=== PATIENT | male | born 1990 | race Caucasian/White ===

== ENCOUNTER 2023-01-18 14:26 | Emergency (ER) | payer SELFPAY ==
[~2023-01-18] VITALS: Ht 172 cm; Wt 88.0 kg
[2023-01-18 14:41] VITALS: BP 115/70
--- NOTE | 2023-01-18 15:08 | ED Psychosocial ---
General Chief Complaint: Psych/Social Disorder Stated Complaint: PSYCH EVAL Nursing Triage Note: Patient has presented to ER with vague complainst of being depressed and having suicidal thoughts. Patient is very vague and he denies a plan. He denies trying to hurt himself. Source: patient History of Present Illness Date Seen by Provider: Jan 18, 2023 Time Seen by Provider: 14:33 Initial Comments 33-year-old male presenting with complaints of having increased depression and suicidal thoughts since Monday. He states that he does not have a specific plan of how to kill himself but had thought about shooting himself in the head with a gun or jumping off of a roof of a building. He denies having any previous p sychiatric admissions. He they recently had increased his Seroquel to 400 mg and he has been more fatigued with that as well as having low blood pressure sometimes when he stands up. He felt like it was helping but again since Monday he has had increased thoughts of suicide. He states that he was not sure what else to do and had spoken with somebody at [facility] and they brought him here to the emergency department for mental health evaluation. He denies any alcohol or drug use. He states he does have family support with family members living nearby. He lives alone with a pet cat. Timing/Duration: getting worse Severity: moderate Associated Symptoms: impaired concentration, suicidal ideation Allergies and Home Medications Allergies Coded Allergies: No Known Drug Allergies (Unverified , 01/18/23) Patient Home Medication List Home Medication List Reviewed: Yes Nitrofurantoin Monohyd/M-Cryst (Macrobid 100 mg Capsule) 100 Mg Capsule, 1 TAB PO BID Prescribed by: NIKKIE CABAN on 01/18/23 1643 Review of Systems Constitutional: No chills, No fever EENTM: no symptoms reported Respiratory: no symptoms reported Cardiovascular: no symptoms reported Gastrointestinal: no symptoms reported Genitourinary: no symptoms reported Musculoskeletal: no symptoms reported Skin: no symptoms reported Psychiatric/Neurological: See HPI Past Aodtqry-Ojcksc-Rkmwfi Hx Patient Social History Tobacco Use?: No Use of E-Cig and/or Vaping dev: No Alcohol Use?: No Past Medical History Surgery/Hospitalization HX: Depression Physical Exam Vital Signs - First Documented 01/18/23 14:41 Temp 36.4 Pulse 83 Resp 16 B/P (MAP) 115/70 (85) Pulse Ox 97 O2 Delivery Room Air Capillary Refill : Height, Weight, BMI Height: '" Weight: lbs. oz. kg; 29.00 BMI Method: General Appearance: WD/WN, no apparent distress HEENT: PERRL/EOMI, pharynx normal Neck: non-tender, full range of motion, supple, normal inspection Respiratory: chest non-tender, lungs clear, normal breath sounds, no respiratory distress, no accessory muscle use Cardiovascular: normal peripheral pulses, regular rate, rhythm Gastrointestinal: normal bowel sounds, non tender, soft, no pulsatile mass Extremities: normal range of motion, non-tender, normal capillary refill Neurologic/Psychiatric: rn hemodialysis II-XII nml as tested, no motor/sensory deficits, alert, oriented x 3, other (Flat and depressed affect) Appearance/Memory: appropriate appearance Behavior/Eye Contact: cooperative, good eye contact, decreased rate of speech Thoughts/Hallucinations: no apparent hallucination, auditory hallucinations Skin: normal color, warm/dry Progress/Results/Core Measures Results/Orders Lab Results Laboratory Tests Test 01/18/23 15:06 01/18/23 15:30 Range/Units White Blood Count 4.5 4.3-11.0 10^3/uL Red Blood Count 4.47 4.30-5.52 10^6/uL Hemoglobin 13.6 13.3-17.7 g/dL Hematocrit 40 40-54 % Mean Corpuscular Volume 89 80-99 fL Mean Corpuscular Hemoglobin 30 25-34 pg Mean Corpuscular Hemoglobin Concent 34 32-36 g/dL Red Cell Distribution Width 12.4 10.0-14.5 % Platelet Count 181 130-400 10^3/uL Mean Platelet Volume 9.9 9.0-12.2 fL Immature Granulocyte % (Auto) 0 % Neutrophils (%) (Auto) 40 L 42-75 % Lymphocytes (%) (Auto) 45 H 12-44 % Monocytes (%) (Auto) 10 0-12 % Eosinophils (%) (Auto) 5 0-10 % Basophils (%) (Auto) 1 0-10 % Neutrophils # (Auto) 1.8 1.8-7.8 10^3/uL Lymphocytes # (Auto) 2.0 1.0-4.0 10^3/uL Monocytes # (Auto) 0.4 0.0-1.0 10^3/uL Eosinophils # (Auto) 0.2 0.0-0.3 10^3/uL Basophils # (Auto) 0.0 0.0-0.1 10^3/uL Immature Granulocyte # (Auto) 0.0 0.0-0.1 10^3/uL Sodium Level 145 135-145 MMOL/L Potassium Level 4.0 3.6-5.0 MMOL/L Chloride Level 111 H 98-107 MMOL/L Carbon Dioxide Level 24 21-32 MMOL/L Anion Gap 10 5-14 MMOL/L Blood Urea Nitrogen 8 7-18 MG/DL Creatinine 0.90 0.60-1.30 MG/DL Estimat Glomerular Filtration Rate 116 BUN/Creatinine Ratio 9 Glucose Level 111 H 70-105 MG/DL Calcium Level 9.2 8.5-10.1 MG/DL Corrected Calcium 9.3 8.5-10.1 MG/DL Total Bilirubin < 0.2 0.1-1.0 MG/DL Aspartate Amino Transf (AST/SGOT) 28 5-34 U/L Alanine Aminotransferase (ALT/SGPT) 43 0-55 U/L Alkaline Phosphatase 103 40-136 U/L Total Protein 7.1 6.4-8.2 GM/DL Albumin 3.9 3.2-4.5 GM/DL Salicylates Level < 0.3 L 5.0-20.0 MG/DL Acetaminophen Level < 10 L 10-30 UG/ML Serum Alcohol < 10 <10 MG/DL Urine Color YELLOW Urine Clarity CLOUDY Urine pH 6.0 5-9 Urine Specific [place] 1.020 1.016-1.022 Urine Protein NEGATIVE NEGATIVE Urine Glucose (UA) NEGATIVE NEGATIVE Urine Ketones NEGATIVE NEGATIVE Urine Nitrite NEGATIVE NEGATIVE Urine Bilirubin NEGATIVE NEGATIVE Urine Urobilinogen 0.2 < = 1.0 MG/DL Urine Leukocyte Esterase 3+ H NEGATIVE Urine RBC (Auto) TRACE-I H NEGATIVE Urine RBC RARE /HPF Urine WBC 10-25 H /HPF Urine Squamous Epithelial Cells RARE /HPF Urine Crystals NONE /LPF Urine Bacteria NEGATIVE /HPF Urine Casts NONE /LPF Urine Mucus LARGE H /LPF Urine Culture Indicated YES Urine Opiates Screen NEGATIVE NEGATIVE Urine Oxycodone Screen NEGATIVE NEGATIVE Urine Methadone Screen NEGATIVE NEGATIVE Urine Propoxyphene Screen NEGATIVE NEGATIVE Urine Barbiturates Screen NEGATIVE NEGATIVE Ur Tricyclic Antidepressants Screen POSITIVE H NEGATIVE Urine Phencyclidine Screen NEGATIVE NEGATIVE Urine Amphetamines Screen NEGATIVE NEGATIVE Urine Methamphetamines Screen NEGATIVE NEGATIVE Urine Benzodiazepines Screen NEGATIVE NEGATIVE Urine Cocaine Screen NEGATIVE NEGATIVE Urine Cannabinoids Screen NEGATIVE NEGATIVE My Orders Orders - NIKKIE CABAN MD Ua Culture If Indicated (01/18/23 14:30) Cbc With Automated Diff (01/18/23 14:30) Comprehensive Metabolic Panel (01/18/23 14:30) Alcohol (01/18/23 14:30) Drug Screen Stat (Urine) (01/18/23 14:30) Acetaminophen (01/18/23 14:30) Salicylate (01/18/23 14:30) Ekg Tracing (01/18/23 14:30) Bh Status Checks/Observation O Q15M (01/18/23 15:02) Urine Culture (01/18/23 15:30) Nitrofurantoin Capsule,Macro (Macrobid C (01/18/23 16:04) Vital Signs/I&O 01/18/23 14:41 Temp 36.4 Pulse 83 Resp 16 B/P (MAP) 115/70 (85) Pulse Ox 97 O2 Delivery Room Air Blood Pressure Mean: 85 Progress Progress Note #1: Progress Note Potential diagnosis of depression, suicide ideation, anxiety, mood disorder. Patient seems to be medically clear and stable on my exam and with vital signs. Will obtain basic screening labs for complete blood count, comprehensive metabolic profile, alcohol, salicylate, acetaminophen levels and a urinalysis with urine drug screen as well as electrocardiogram. We will contact [facility] about mental health screening after 5 PM it would rollover to [facility]. Patient is placed in a safe room and following standard observation for suicidal ideation patient. Progress Note #2: Time: 15:57 Progress Note His complete blood count did not show any acute significant abnormality as he had a normal white blood cell count of 4.5 and hemoglobin low normal at 13.6. His comprehensive metabolic profile did not show any acute electrolyte abnormality. He had tricyclic's show up on his urine drug screen consistent with his mental health medications. He had a negative alcohol, salicylate, acetaminophen level. His urinalysis did have 3+ leukocyte esterase with 10-25 white blood cells and mucus. Will prescribe a 3-day course of antibiotics for possible UTI. Culture was reflexed but will take another 2 or 3 days to get back. Progress Note #3: Time: 16:50 Progress Note [facility] screener completed their interview and screening of the patient. They were able to formulate a safety plan for the patient for discharge home. Will send prescription to [facility] for Macrobid 100 mg po bid x 5 days. Encourage fluids and hydration. Follow upwith clinic for continued concerns. Will cancel the order for Electrocardiogram as the patient did not have one performed while he was here in the ED. Departure Impression Primary Impression: Depression with suicidal ideation Additional Impression: Acute cystitis without hematuria Disposition: 01 HOME, SELF-CARE Condition: Stable Departure-Patient Inst. Decision time for Depature: 16:58 Referrals: RAE CANTU APRN (PCP) Primary Care Physician [facility] (Family) Primary Care Physician Patient Instructions: Urinary Tract Infection, Adult ED, Depression, Adult ED Add. Discharge Instructions: Follow the safety plan as you agreed upon with the mental health screener. Your urine had shown some infection so a prescription for 5 days of antibiotics were sent to [facility] in [place]. Stay well hydrated and take the full course of antibiotic to treat for infection. All discharge instructions reviewed with patient and/or family. Voiced understanding. Scripts Nitrofurantoin Monohyd/M-Cryst (Macrobid 100 mg Capsule) 100 Mg Capsule 1 TAB PO BID for UTI for 5 Days, #10 CAP 0 Refills Prov: NIKKIE CABAN MD 01/18/23 NIKKIE CABAN MD Jan 18, 2023 15:08
[2023-01-18 15:15] LABS: BASOPHILS % (AUTO) 1 % (0-10); EOSINOPHILS # (AUTO) 0.2 10^3/uL (0.0-0.3); EOSINOPHILS % (AUTO) 5 % (0-10); HEMATOCRIT 40 % (40-54); HEMOGLOBIN 13.6 g/dL (13.3-17.7); LYMPHOCYTES % (AUTO) 45 % (12-44); MEAN CORPUSCULAR HEMOGLOBIN 30 pg (25-34); MEAN CORPUSCULAR HGB CONC 34 g/dL (32-36); MEAN CORPUSCULAR VOLUME 89 fL (80-99); MEAN PLATELET VOLUME 9.9 fL (9.0-12.2); MONOCYTES # (AUTO) 0.4 10^3/uL (0.0-1.0); MONOCYTES % (AUTO) 10 % (0-12); NEUTROPHILS # (AUTO) 1.8 10^3/uL (1.8-7.8); NEUTROPHILS % (AUTO) 40 % (42-75); PLATELET COUNT 181 10^3/uL (130-400); WHITE BLOOD COUNT 4.5 10^3/uL (4.3-11.0)
[2023-01-18 15:38] LABS: SODIUM 145 MMOL/L (135-145)
[2023-01-18 15:39] LABS: CARBON DIOXIDE 24 MMOL/L (21-32)
[2023-01-18 15:40] LABS: ALKALINE PHOSPHATASE 103 U/L (40-136); BILIRUBIN,TOTAL < 0.2 MG/DL (0.1-1.0); BUN/CREATININE RATIO 9; CALCIUM 9.2 MG/DL (8.5-10.1); GFR ESTIMATED 116; GLUCOSE 111 MG/DL (70-105)
[2023-01-18 15:41] LABS: ACETAMINOPHEN < 10 UG/ML (10-30); ALANINE AMINOTRANSFERASE 43 U/L (0-55); ALBUMIN 3.9 GM/DL (3.2-4.5); SALICYLATE < 0.3 MG/DL (5.0-20.0); TOTAL PROTEIN 7.1 GM/DL (6.4-8.2)
[2023-01-18 15:48] LABS: BILIRUBIN,URINE NEGATIVE (NEGATIVE); CLARITY,URINE CLOUDY; COLOR,URINE YELLOW; GLUCOSE, URINE (UA) NEGATIVE (NEGATIVE); KETONES,URINE NEGATIVE (NEGATIVE); LEUKOCYTE ESTERASE ,URINE 3+ (NEGATIVE); NITRITE,URINE NEGATIVE (NEGATIVE); PROTEIN,URINE NEGATIVE (NEGATIVE)
[2023-01-18 15:51] LABS: BACTERIA,URINE NEGATIVE /HPF; RBC,URINE RARE /HPF; SQUAMOUS EPITHELIAL CELL,UR RARE /HPF
[2023-01-18 15:52] LABS: CHLORIDE 111 MMOL/L (98-107)
[2023-01-18 15:53] LABS: AMPHETAMINE SCREEN, URINE NEGATIVE (NEGATIVE); BENZODIAZEPINES SCREEN URINE NEGATIVE (NEGATIVE); COCAINE SCREEN URINE NEGATIVE (NEGATIVE)
[2023-01-18 15:54] LABS: BARBITURATE SCREEN URINE NEGATIVE (NEGATIVE); CANNABINOID SCREEN, URINE NEGATIVE (NEGATIVE); METHADONE STAT NEGATIVE (NEGATIVE); OPIATE SCREEN URINE NEGATIVE (NEGATIVE); OXYCODONE STAT NEGATIVE (NEGATIVE); PROPOXYPHENE STAT NEGATIVE (NEGATIVE); TRICYCLIC ANTIDEPRESSANTS SCRE POSITIVE (NEGATIVE)
[2023-01-18] MEDS ORDERED: NITROFURANTOIN 100 MG (MACROBID) CAPSULE PO STA (16:04)
[2023-01-18] MEDS ORDERED: NITR-65 PO (16:43)
== END 2023-01-18 17:45 | disposition home or self-care (01) ==
LOC: ER FS 14:26
DX: R45.851 Suicidal ideations (principal); F32.A Depression, unspecified; N30.00 Acute cystitis without hematuria
CPT/HCPCS: 36415; 80053; 80306; 81000; 85025; 87088; G0480 ×3; 80320; 80329